=== PATIENT | male | born 1940 | race Two or more races ===

== ENCOUNTER 2024-09-13 13:59 | Observation (INO) | payer OTHER ==
[2024-09-13 15:43] LABS: BASO % 0.2 % (0-2.0); EOS % 0.5 % (0-4.5); HEMATOCRIT 42.9 % (35.4-49); HEMOGLOBIN 14.6 GM/dL (11.7-16.9); LYMPH % 11.2 % (8-40); MCH 31.7 pg (25.7-33.7); MEAN CELL VOLUME 93.2 fl (80-96); MEAN PLT VOLUME 8.9 fl (7.5-11.1); NEUT % 78.1 % (42.8-82.8); PLATELET COUNT 234 10^3/uL (134-434); RBC 4.61 M/mm3 (4.00-5.60); RDW 14.6 % (11.9-15.9); WHITE BLOOD COUNT 9.1 K/mm3 (4.0-10.0)
[2024-09-13 15:54] LABS: INR 0.97 (0.83-1.09); PROTHROMBIN TIME (PATIENT) 11.2 SEC (9.7-13.0)
[2024-09-13 16:02] VITALS: BMI 28.3
[2024-09-13 16:05] LABS: POTASSIUM 4.9 mmol/L (3.5-5.1)
[2024-09-13 16:06] LABS: CALCIUM 9.7 mg/dL (8.5-10.1)
[2024-09-13 16:07] LABS: ALBUMIN 3.5 g/dl (3.4-5.0)
[2024-09-13 16:10] LABS: CREATININE 1.8 mg/dL (0.55-1.3); PHOSPHOROUS 3.3 mg/dL (2.5-4.9)
[2024-09-13 16:11] LABS: BILIRUBIN,TOTAL 0.3 mg/dL (0.2-1)
[2024-09-13 16:12] LABS: TOT PROT 6.8 g/dl (6.4-8.2)
[2024-09-13 16:15] LABS: N-TERMINAL BNP 73.4 pg/ml (5-450)
[2024-09-13 17:03] LABS: PH,URINE 6.5 (5.0-8.0); URINE APPEARANCE CLEAR; URINE BILIRUBIN NEGATIVE (NEGATIVE); URINE COLOR YELLOW; URINE GLUCOSE (UA) NEGATIVE (NEGATIVE); URINE KETONE NEGATIVE (NEGATIVE); URINE LEUK ESTERASE NEGATIVE (NEGATIVE); URINE NITRITE NEGATIVE (NEGATIVE); URINE PROTEIN TRACE (NEGATIVE); URINE UROBILINOGEN 0.2 mg/dL (0.2-1.0)
[2024-09-13] MEDS: LACTATED RINGERS SOLUTION 1000 ML INFUS.BAG IV ONE (19:05)
[2024-09-14] MEDS ORDERED: HEPARIN NA (PORCINE) 5,000 UNITS/ML 1ML VIAL ONE ×2 (06:11→14:30)
[2024-09-14] MEDS: HEPARIN NA (PORCINE) 5,000 UNITS/ML 1ML VIAL SQ SCH (06:41)
[2024-09-14 07:19] LABS: POTASSIUM 4.6 mmol/L (3.5-5.1)
[2024-09-14 07:24] LABS: CALCIUM 9.1 mg/dL (8.5-10.1)
[2024-09-14 07:25] LABS: BLOOD UREA NITROGEN 17.1 mg/dL (7-18); MAGNESIUM 1.8 mg/dL (1.8-2.4)
[2024-09-14 07:28] LABS: CREATININE 1.4 mg/dL (0.55-1.3); PHOSPHOROUS 3.2 mg/dL (2.5-4.9)
[2024-09-14 07:29] LABS: BILIRUBIN,TOTAL 0.4 mg/dL (0.2-1); TOT PROT 6.2 g/dl (6.4-8.2)
[2024-09-14 07:45] LABS: HEMATOCRIT 40.4 % (35.4-49); HEMOGLOBIN 13.7 GM/dL (11.7-16.9); MCH 31.8 pg (25.7-33.7); MCHC 33.9 g/dl (32.0-35.9); MEAN PLT VOLUME 9.2 fl (7.5-11.1); PLATELET COUNT 223 10^3/uL (134-434); RBC 4.29 M/mm3 (4.00-5.60); WHITE BLOOD COUNT 6.7 K/mm3 (4.0-10.0)
[2024-09-14] MEDS ORDERED: ENOXAPARIN NA (PORCINE) 40 MG/0.4 ML DISP.SYRIN SQ SCH (10:00)
[2024-09-15 07:33] LABS: POTASSIUM 4.3 mmol/L (3.5-5.1)
[2024-09-15 07:36] LABS: ALBUMIN 3.1 g/dl (3.4-5.0); HEMATOCRIT 40.8 % (35.4-49); MCH 31.8 pg (25.7-33.7); MCHC 34.2 g/dl (32.0-35.9); MEAN PLT VOLUME 8.9 fl (7.5-11.1); PLATELET COUNT 211 10^3/uL (134-434); RBC 4.39 M/mm3 (4.00-5.60); RDW 13.8 % (11.9-15.9); WHITE BLOOD COUNT 4.7 K/mm3 (4.0-10.0)
[2024-09-15 07:37] LABS: BLOOD UREA NITROGEN 17.1 mg/dL (7-18); CALCIUM 8.9 mg/dL (8.5-10.1)
[2024-09-15 07:39] LABS: CREATININE 1.3 mg/dL (0.55-1.3)
[2024-09-15 07:40] LABS: BILIRUBIN,TOTAL 0.4 mg/dL (0.2-1)
[2024-09-15 07:41] LABS: TOT PROT 6.4 g/dl (6.4-8.2)
[2024-09-15] MEDS: CARBAMIDE PEROXIDE 6.5% OTIC 15 ML BOTTLE AU SCH (21:43)
[2024-09-16 09:13] LABS: HEMATOCRIT 41.1 % (35.4-49); HEMOGLOBIN 13.9 GM/dL (11.7-16.9); MCH 31.4 pg (25.7-33.7); MCHC 33.8 g/dl (32.0-35.9); MEAN CELL VOLUME 92.9 fl (80-96); MEAN PLT VOLUME 9.2 fl (7.5-11.1); PLATELET COUNT 231 10^3/uL (134-434); RBC 4.42 M/mm3 (4.00-5.60); RDW 13.7 % (11.9-15.9); WHITE BLOOD COUNT 5.4 K/mm3 (4.0-10.0)
[2024-09-16 10:01] LABS: BLOOD UREA NITROGEN 17.8 mg/dL (7-18)
[2024-09-16] MEDS: ONDANSETRON 4 MG TABLET PO ONE (10:01)
[2024-09-16] MEDS: POLYETHYLENE GLYCOL (HEALTHYLAX) 3350 17 GM PACKET PO SCH ×2 (10:01→21:35)
[2024-09-16 10:03] LABS: ALBUMIN 3.3 g/dl (3.4-5.0); CALCIUM 9.3 mg/dL (8.5-10.1)
[2024-09-16 10:06] LABS: CREATININE 1.3 mg/dL (0.55-1.3)
[2024-09-16 10:07] LABS: BILIRUBIN,TOTAL 0.5 mg/dL (0.2-1)
[2024-09-16 10:08] LABS: TOT PROT 6.4 g/dl (6.4-8.2)
[2024-09-16] MEDS: SODIUM CHLORIDE 1,000 ML IV SCH (14:55)
[2024-09-17 07:15] LABS: HEMATOCRIT 40.2 % (35.4-49); HEMOGLOBIN 13.3 GM/dL (11.7-16.9); MCH 31.2 pg (25.7-33.7); MCHC 33.1 g/dl (32.0-35.9); MEAN CELL VOLUME 94.3 fl (80-96); MEAN PLT VOLUME 8.7 fl (7.5-11.1); PLATELET COUNT 209 10^3/uL (134-434); RBC 4.27 M/mm3 (4.00-5.60); RDW 14.1 % (11.9-15.9)
[2024-09-17 07:30] LABS: POTASSIUM 4.4 mmol/L (3.5-5.1)
[2024-09-17 07:36] LABS: CALCIUM 8.9 mg/dL (8.5-10.1)
[2024-09-17 07:37] LABS: ALBUMIN 3.2 g/dl (3.4-5.0); BLOOD UREA NITROGEN 13.5 mg/dL (7-18)
[2024-09-17 07:39] LABS: BILIRUBIN,TOTAL 0.5 mg/dL (0.2-1); TOT PROT 6.1 g/dl (6.4-8.2)
[2024-09-17 07:40] LABS: CREATININE 1.1 mg/dL (0.55-1.3)
[2024-09-17] MEDS: LACTULOSE 20 GM/30 ML UDC (FOR ORAL USE ONLY) PO ONE ×2 (13:59→15:32)
[2024-09-17] MEDS: POLYETHYLENE GLYCOL (HEALTHYLAX) 3350 17 GM PACKET PO SCH (13:59)
[2024-09-17 15:05] VITALS: RESP 18
[2024-09-17] MEDS: SODIUM CHLORIDE 1,000 ML IV SCH (18:10)
[2024-09-18 07:40] LABS: HEMATOCRIT 39.2 % (35.4-49); HEMOGLOBIN 13.7 GM/dL (11.7-16.9); MCH 32.2 pg (25.7-33.7); MEAN CELL VOLUME 91.9 fl (80-96); MEAN PLT VOLUME 9.2 fl (7.5-11.1); PLATELET COUNT 183 10^3/uL (134-434); RBC 4.26 M/mm3 (4.00-5.60); RDW 13.3 % (11.9-15.9)
[2024-09-18 07:55] LABS: POTASSIUM 4.2 mmol/L (3.5-5.1)
[2024-09-18 08:00] LABS: CALCIUM 8.8 mg/dL (8.5-10.1)
[2024-09-18 08:01] LABS: ALBUMIN 3.3 g/dl (3.4-5.0); BLOOD UREA NITROGEN 7.6 mg/dL (7-18)
[2024-09-18 08:06] LABS: BILIRUBIN,TOTAL 0.4 mg/dL (0.2-1); TOT PROT 6.4 g/dl (6.4-8.2)
[2024-09-18 11:26] VITALS: PULSE 83
[2024-09-18 15:43] VITALS: BP 137/66; TEMP 97.9
[2024-09-18] MEDS ORDERED: ROSUVASTATIN CA 20 MG TABLET PO SCH (22:00)
== END 2024-09-18 16:35 ==
LOC: JER 13:59 → JERBED 20:22 → UNDOADMOB 20:22 → INTOOBSV 21:51 → OBSVTOIN 21:51 → JERBED 09-14 10:31 → J4W 09-14 20:44
PROVIDERS: ADMIT Internal Medicine; ATTEND Internal Medicine
PROC: 3E023GC Introduction of Other Therapeutic Substance into Muscle, Percutaneous Approach (ICD-10-PCS; principal; 2024-09-14)
PROC: 3E0337Z Introduction of Electrolytic and Water Balance Substance into Peripheral Vein, Percutaneous Approach (ICD-10-PCS; 2024-09-14)
DX: R55 Syncope and collapse (principal); I95.9 Hypotension, unspecified; K59.00 Constipation, unspecified; N17.9 Acute kidney failure, unspecified; E78.5 Hyperlipidemia, unspecified; I69.354 Hemiplegia and hemiparesis following cerebral infarction affecting left non-dominant side
CPT/HCPCS: 36415; 70450-TC; 71045-TC-FY; 72131-TC; 74176-TC; 76775-TC; 80053; 80061; 81003; 82550; 82553; 82962; 83036; 83735; 83880; 83930; 83935; 84100; 84300; 84443; 84484; 85025; 85027; 85610; 85730; 86850; 86900; 86901; 87086; 93005; 93010; 93306-TC; 93880-TC; 96360; 96361; 96372; 97116-GP; 97162-GP; 99291; G0378; J1644